=== PATIENT | female | born 1960 | race Caucasian/White ===

== ENCOUNTER 2021-05-13 09:57 | Day surgery (SDC) | payer BC ==
[~2021-05-13 09:57] MED LIST: Lactated Ringers 1,000 ML IV SCH
[2021-05-13] MEDS ORDERED: propofoL 50 ML ONE (10:01)
--- NOTE | 2021-05-13 10:41 | PCM.PREANE ---
Preanesthetic Assessment - Anesthesia/Transfusion/Family Hx Anesthesia History: Prior Anesthesia Without Reaction Other Type of Anesthesia Reaction Comment: very drowsy after BTL Transfusion History: No Prior Transfusion(s) - Review of Systems General: No Symptoms Pulmonary: No Symptoms Cardiovascular: No Symptoms Gastrointestinal: No Symptoms Neurological: Pre-Existing Deficit Other: Reports: None - Physical Assessment NPO Status Date: 05/13/21 NPO Status Time: 00:00 Vital Signs: Last Vital Signs Temp 97.2 F 05/13/21 10:30 Pulse 62 05/13/21 10:30 Resp 16 05/13/21 10:30 BP 127/67 05/13/21 10:30 Pulse Ox 95 05/13/21 10:30 Height: 5 ft 2 in Weight: 161 lb ASA Class: 2 Mental Status: Alert & Oriented x3 Airway Class: Mallampati = 2 Dentition: Reports: Broken Tooth/Teeth, Missing Tooth/Teeth ROM/Head Extension: Full Lungs: Clear to Auscultation, Normal Respiratory Effort Cardiovascular: Regular Rate, Regular Rhythm - Allergies Allergies/Adverse Reactions: Allergies Allergy/AdvReac Type Severity Reaction Status Date / Time latex Allergy Itching Verified 05/11/21 11:47 Sulfa (Sulfonamide Allergy Hives Verified 05/11/21 11:47 Antibiotics) - Acknowledgements Anesthesia Type Planned: General Anesthesia Pt an Appropriate Candidate for the Planned Anesthesia: Yes Alternatives and Risks of Anesthesia Discussed w Pt/Guardian: Yes Pt/Guardian Understands and Agrees with Anesthesia Plan: Yes PreAnesthesia Questionnaire HEENT History: Reports: Other (See Below) Other HEENT History: wears glasses Cardiovascular History: Reports: Hypertension Respiratory History: Reports: None Gastrointestinal History: Reports: Chronic Diarrhea Genitourinary History: Reports: None [employer]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 History: Reports: None Musculoskeletal History: Reports: None Neurological History: Reports: None Psychiatric History: Reports: Depression Endocrine/Metabolic History: Reports: None Hematologic History: Reports: None Immunologic History: Reports: None Oncologic (Cancer) History: Reports: None Dermatologic History: Reports: None - Past Surgical History Head Surgeries/Procedures: Reports: None HEENT Surgical History: Reports: Tonsillectomy Cardiovascular Surgical History: Reports: None Respiratory Surgical History: Reports: None GI Surgical History: Reports: None Female Surgical History: Reports: Hysterectomy, Tubal Ligation Endocrine Surgical History: Reports: None Neurological Surgical History: Reports: Other (See Below) Other Neurological Surgeries/Procedures: Crainiotomy for excision of Acoustic Neuroma Musculoskeletal Surgical History: Reports: None Oncologic Surgical History: Reports: None Dermatological Surgical History: Reports: None - SUBSTANCE USE Tobacco Use Status *Q: Never Tobacco User Days Per Week of Alcohol Use: 7 Number of Drinks Per Day: 1 Total Drinks Per Week: 7 Recreational Drug Use History: No - HOME MEDS Home Medications: Home Meds Escitalopram Oxalate 20 mg PO DAILY 05/11/21 [History] Telmisartan 20 mg PO DAILY 05/11/21 [History] - CURRENT (IN HOUSE) MEDS Current Meds: Current Medications Lactated Ringer's (Ringers, Lactated) 1,000 mls @ 125 mls/hr IV ASDIRECTED [facility] Last Admin: 05/13/21 10:39 Dose: 125 mls/hr Documented by: Discontinued Medications Propofol (Diprivan 50 Ml) Confirm Administered Dose 50 mls @ as directed .ROUTE .STK-MED ONE Stop: 05/13/21 10:02
[2021-05-13] MEDS ORDERED: Glycopyrrolate 0.2 MG/ML SDV ONE (11:25)
--- NOTE | 2021-05-13 11:45 | PCM.OPNOTE ---
- General Post-Op/Procedure Note Date of Surgery/Procedure: 05/13/21 Operative Procedure(s): Colonoscopy with biopsies Findings: Normal colon dictation number [id number] Pre Op Diagnosis: Loose stools Post-Op Diagnosis: Normal colonoscopy Primary Surgeon: Travis Cronin Pathology: Random biopsies of colon Complications: None Condition: Good
--- NOTE | 2021-05-13 11:49 | PCM.POSTAN ---
POST ANESTHESIA ASSESSMENT - MENTAL STATUS Mental Status: Alert, Oriented - VITAL SIGNS Vital Signs: Last Vital Signs Temp 97.2 F 05/13/21 10:30 Pulse 48 L 05/13/21 11:48 Resp 11 L 05/13/21 11:48 BP 98/50 L 05/13/21 11:48 Pulse Ox 96 05/13/21 11:48 - RESPIRATORY Respiratory Status: Respiratory Rate WNL, Airway Patent, O2 Saturation Stable - CARDIOVASCULAR CV Status: Pulse Rate WNL, Blood Pressure Stable - GASTROINTESTINAL GI Status: No Symptoms - POST OP HYDRATION Hydration Status: Adequate & Stable
--- NOTE | 2021-05-13 11:49 | PCM48HPAN ---
Post Anesthesia Note - EVALUATION WITHIN 48HRS OF ANESTHETIC Vital Signs in Normal Range: Yes Patient Participated in Evaluation: Yes Respiratory Function Stable: Yes Airway Patent: Yes Cardiovascular Function Stable: Yes Hydration Status Stable: Yes Pain Control Satisfactory: Yes Nausea and Vomiting Control Satisfactory: Yes Mental Status Recovered: Yes Vital Signs: Last Vital Signs Temp 97.2 F 05/13/21 10:30 Pulse 48 L 05/13/21 11:48 Resp 11 L 05/13/21 11:48 BP 98/50 L 05/13/21 11:48 Pulse Ox 96 05/13/21 11:48
--- NOTE | 2021-05-13 12:17 | PCM.OPNOTE ---
- General Post-Op/Procedure Note Date of Surgery/Procedure: 05/13/21 Operative Procedure(s): Duplicate note. Please see other note from this day. Primary Surgeon: Travis Cronin Complications: None Condition: Good Free Text/Narrative:: Intake & Output 05/12/21 05/13/21 05/13/21 22:59 06:59 14:59 Intake Total 600 Balance 600
--- NOTE | 2021-05-13 15:43 | OR ---
SURGEON: AMANDEEP ELMORE MD DATE OF PROCEDURE: 05/13/2021 PREOPERATIVE DIAGNOSIS: Frequent loose stools. POSTOPERATIVE DIAGNOSIS: Normal colonoscopy. PRIMARY SURGEON: Amandeep Elmore MD ANESTHESIA: With the anesthesiologist. EXTENT OF THE COLONOSCOPY: To the cecum. BOWEL PREP: Excellent. LIMITATIONS: None. PROCEDURE: Colonoscopy with random colon biopsies. REASON FOR PROCEDURE: The patient is a pleasant 60-year-old female. She has never had a colonoscopy before. She denies any blood in her stool. She denies any family history of colon cancer. She does say for the about the past year she has had issues with loose stools. She says the loose stools come and go, but at their worse, she will have to go to the bathroom about eight times a day and they come on suddenly. Sometimes, she does not make it to the bathroom in time. She denies really any abdominal pain. PROCEDURE IN DETAIL: Physical exam was performed. The major risks and benefits associated with the procedure were explained to the patient in detail. The patient verbalized understanding and was in agreement with the same. The patient was then connected to the appropriate monitoring devices, and IV was started. EKG, pulse oximetry, blood pressure, and capnography were monitored throughout the entire procedure. Continuous oxygen and sedation were provided by the anesthesiologist. The patient was placed in left lateral decubitus position. Sedation was began. After adequate sedation was achieved, a digital rectal exam was performed. No rectal masses or polyps were felt. Now, a well-lubricated Olympus colonoscope was inserted into the rectum and advanced under direct visualization to the level of the cecum. Cecum was identified by both visual and anatomic landmarks. Photographs were taken of the cecal cap. Scope was then slowly withdrawn in a circular fashion looking at the color, texture, anatomy, and integrity of mucosa from the cecum to the anal canal. The patient had an excellent bowel prep with just very minimal liquid stool. This was suctioned and irrigated out for an excellent look at the mucosa. Because of her history of loose stools, I did do random biopsies throughout the colon to check for microscopic colitis. Scope was retroflexed in the rectum. Scope was then completely removed and the procedure was terminated. ENDOSCOPIC DIAGNOSIS: Normal colonoscopy. RECOMMENDATIONS: The patient will follow up in the clinic to go over her random biopsies, but depending on pathology, her next colonoscopy should be in 10 years; sooner if she develops signs and symptoms such as change in bowel habits or blood in her stool. ANIKET / KYLER /[id number]
== END 2021-05-13 12:15 | disposition home or self-care (01) ==
LOC: MW.SDS 09:57
PROVIDERS: ATTEND Surgery
DX: R19.5 Other fecal abnormalities (principal); I10 Essential (primary) hypertension; G47.00 Insomnia, unspecified; Z88.2 Allergy status to sulfonamides; Z79.899 Other long term (current) drug therapy; Z98.890 Other specified postprocedural states; Z91.040 Latex allergy status
CPT/HCPCS: 45380; J2704; J3490; J7120; 00812; 88305

== ENCOUNTER 2024-06-20 12:12 | Emergency (ER) | payer BC, OTHER ==
[2024-06-20 13:17] LABS: BASOPHILS ABSOLUTE AUTO 0.03 K/uL (0.00-0.20); BASOPHILS PERCENT AUTO 0.2 % (0.0-1.0); HEMATOCRIT 38.9 % (37.0-47.0); HEMOGLOBIN 12.8 g/dL (12.0-16.0); IMMATURE GRAN ABSOLUTE AUTO 0.04 K/uL (0.00-0.05); IMMATURE GRAN PERCENT AUTO 0.3 % (0.0-0.4); LYMPHOCYTES ABSOLUTE AUTO 1.25 K/uL (1.00-4.80); LYMPHOCYTES PERCENT AUTO 10.1 % (24.0-44.0); MEAN CORPUSCULAR HEMOGLOBIN 28.1 pg (28.0-32.0); MEAN CORPUSCULAR HGB CONC 32.9 g/dL (32.0-36.0); MEAN CORPUSCULAR VOLUME 85.5 fL (83.0-99.0); MEAN PLATELET VOLUME 8.9 fL (9.4-12.3); MONOCYTES ABSOLUTE AUTO 0.74 K/uL (0.00-0.80); NEUTROPHILS ABSOLUTE AUTO 10.34 K/uL (1.80-7.70); NEUTROPHILS PERCENT AUTO 83.4 % (41.0-71.0); PLATELET COUNT,PLT 263 K/uL (150-400); RED BLOOD CELL COUNT 4.55 M/uL (4.10-5.30)
[2024-06-20] MEDS: Sodium Chloride 0.9% 1,000 ML IV ONE (13:17)
[2024-06-20] MEDS: Prochlorperazine 10 MG/2 ML SDV IVPUSH ONE (13:17)
[2024-06-20] MEDS: Ketorolac 30 MG/ML SDV IVPUSH ONE (13:18)
[2024-06-20] MEDS: diphenhydrAMINE 50 MG/ML SDV IVPUSH ONE (13:18)
[2024-06-20 13:51] LABS: A/G RATIO 1.2 (0.9-1.6); ALANINE AMINOTRANSFERASE,ALT 18 IU/L (14-63); ALBUMIN 3.6 g/dL (3.4-5.0); ALKALINE PHOSPHATASE 63 U/L (46-116); ASPARTATE AMNIOTRANSFERASE,AST 15 IU/L (15-37); BILIRUBIN TOTAL 0.7 mg/dL (0.2-1.0); BLOOD UREA NITROGEN,BUN 21 mg/dL (7.0-18.0); CALCIUM 8.9 mg/dL (8.5-10.1); CARBON DIOXIDE,CO2 29.1 mmol/L (21.0-32.0); CHLORIDE,CL 100 mmol/L (98-107); ESTIMATED GFR 64 mL/min (>60); GLUCOSE RANDOM 152 mg/dL (74-106); POTASSIUM,K 3.8 mmol/L (3.5-5.1); PROTEIN TOTAL,TP 6.6 g/dL (6.4-8.2); SODIUM,NA 136 mmol/L (136-145)
[2024-06-20 13:57] LABS: CORONAVIRUS COVID-19 NAA NEGATIVE (NEGATIVE); INFLUENZA A NAA NEGATIVE (NEGATIVE); INFLUENZA B NAA NEGATIVE (NEGATIVE); RESPIRATORY SYNCYTIAL VIR NAA NEGATIVE (NEGATIVE)
[2024-06-20] MEDS: Lidocaine 4% 1 each Patch TOP STA (14:32)
== END 2024-06-20 14:58 | disposition home or self-care (01) ==
LOC: MW.ED 12:12
DX: G43.909 Migraine, unspecified, not intractable, without status migrainosus (principal); I10 Essential (primary) hypertension; Z90.710 Acquired absence of both cervix and uterus; Z79.899 Other long term (current) drug therapy; Z91.040 Latex allergy status; Z88.2 Allergy status to sulfonamides; Z75.8 Other problems related to medical facilities and other health care
CPT/HCPCS: 0241U; 36415; 70450; 80053; 85025; 96361; 96374; 96375; 99284; A9270; J0780; J1200; J1885; J7030